=== PATIENT | male | born 1950 | race Asian ===

== ENCOUNTER 2020-07-14 13:14 | Emergency (ER) | payer MEDICAID ==
[~2020-07-14] VITALS: Ht 167.6 cm; Wt 86.8 kg
--- NOTE | 2020-07-14 14:11 | NUR ---
PUENTE x4 days from top of head to rt ear lobe.
--- NOTE | 2020-07-14 14:15 | NUR ---
Per MD, CT looks clear. Suspects Theo Bacon, will order MRI for more definitive dx.
[2020-07-14] MEDS ORDERED: NO HOME MEDS (14:17)
[2020-07-14 14:25] LABS: BASOPHILS % (AUTO) 0.3 % (0-1); EOSINOPHILS # (AUTO) 0.1 X10'3 (0-0.9); EOSINOPHILS % (AUTO) 2.6 % (0-6); HEMATOCRIT 45.2 % (42.0-52.0); HEMOGLOBIN 15.5 g/dl (14.0-17.9); LYMPHOCYTES # (AUTO) 1.5 X10'3 (1.1-4.8); LYMPHOCYTES % (AUTO) 34.2 % (21-51); MEAN CORPUSCULAR HEMOGLOBIN 30.8 PG (27.0-31.0); MEAN CORPUSCULAR HGB CONC 34.4 g/dL (33.0-36.5); MEAN CORPUSCULAR VOLUME 89.8 FL (78-98); MEAN PLATELET VOLUME 8.9 FL (7.4-10.4); MONOCYTES # (AUTO) 0.7 X10'3 (0-0.9); MONOCYTES % (AUTO) 15.5 % (2-12); NEUTROPHILS # (AUTO) 2.1 X10'3 (1.8-7.7); NEUTROPHILS % (AUTO) 47.4 % (42-75); PLATELET COUNT 138 X10'3 (140-440); RED BLOOD COUNT 5.04 X10'6 (4.70-6.10); RED CELL DISTRIBUTION WIDTH 13.2 % (11.5-14.5); WHITE BLOOD COUNT 4.5 X10'3 (4.5-11.0)
[2020-07-14 14:31] LABS: PARTIAL THROMBOPLASTIN TIME 29 SECONDS (22-32)
[2020-07-14 14:33] LABS: ALANINE AMINOTRANSFERASE 79 U/L (12-78); ALBUMIN 3.6 G/DL (3.4-5.0); ALBUMIN/GLOBULIN RATIO 0.8 (1.1-1.5); ALKALINE PHOSPHATASE 108 IU/L (46-116); ANION GAP 2 (8-16); ASPARTATE AMINO TRANSFERASE 52 U/L (10-37); BILIRUBIN,TOTAL 0.7 MG/DL (0.1-1.0); BLOOD UREA NITROGEN 13 MG/DL (7-18); BUN/CREATININE RATIO 10.5 (5.4-32.0); CALCIUM 8.9 MG/DL (8.5-10.1); CHLORIDE 106 MMOL/L (99-107); CREATININE 1.24 MG/DL (0.60-1.10); GLUCOSE 113 MG/DL (70-104); POTASSIUM 3.8 MMOL/L (3.5-5.1); SODIUM 138 MMOL/L (135-145); TOTAL CARBON DIOXIDE 29.9 MMOL/L (24-32); TOTAL PROTEIN 8.4 G/DL (6.4-8.2); eGFR 58 ML/MIN
[2020-07-14 14:36] LABS: TROPONIN I < 0.04 NG/ML (0.0-0.05)
[2020-07-14 14:44] LABS: TOTAL CELLS COUNTED 100
[2020-07-14 14:45] LABS: PLATELET ESTIMATE DECREASED
[2020-07-14] MEDS ORDERED: ACYC-202 PO (15:56)
[2020-07-14 16:14] VITALS: BP 169/97
== END 2020-07-14 16:12 | disposition home or self-care (01) ==
LOC: ER 13:16
DX: G51.0 Bell's palsy (principal); I10 Essential (primary) hypertension
CPT/HCPCS: 36415; 70450; 70544; 70551; 71045; 80053; 82948; 84484; 85007; 85025; 85610; 85730; 93005; 99285